=== PATIENT | female | born 1980 | race Two or more races ===

== ENCOUNTER 2020-05-20 14:00 | Emergency (ER) | payer BC ==
[2020-05-20 14:06] VITALS: BP 100/62; PULSE 71; TEMP 98.8; BMI 27.8
--- OUTSIDE RECORDS SUMMARY | 2020-05-20 14:35 | XMS ---
:1980 Author Organization [facility] Care Team Providers Name Role Phone CRIS Unavailable Unavailable Re-disclosure Warning The records that you are about to access may contain information from federally- assisted alcohol or drug abuse programs. If such information is present, then the following federally mandated warning applies: This information has been disclosed to you from records protected by federal confidentiality rules (42 CFR part 2). The federal rules prohibit you from making any further disclosure of this information unless further disclosure is expressly permitted by the written consent of the person to whom it pertains or as otherwise permitted by 42 CFR part 2. A general authorization for the release of medical or other information is NOT sufficient for this purpose. The Federal rules restrict any use of the information to criminally investigate or prosecute any alcohol or drug abuse patient.The records that you are about to access may contain highly sensitive health information, the redisclosure of which is protected by Article 27-F of the [place] [facility] law. If you continue you may haveaccess to information: Regarding HIV / AIDS; Provided by facilities licensed or operated by the [facility] Office of Mental Health; or Provided by the [facility] Office for People With Developmental Disabilities. If such information is present, then the following [facility] mandated warning applies: This information has been disclosed to you from confidential records which are protected by state law. State law prohibits you from making any further disclosure of this information without the specific written consent of the person to whom it pertains, or as otherwise permitted by law. Any unauthorized further disclosure in violation of state law may result in a fine or detention sentence or both. A general authorization for the release of medical or other information is NOT sufficient authorization for further disclosure. Encounters Encounter Providers Location Date Indications Data Source(s ) Outpatient Attender: 11/21/2019 Z03.818 [facility] joyce CRISAdmitter: 10:21:00 AM Health Care GARRICKReferrer: [employer] CRIS Z03.818 Insurance Providers Payer name Policy type / Policy ID Covered Covered green party's Policy Plan Coverage type green party ID relationship to [employer] Information jacobs [employer] OUT OF [id number] [place] [address] 63 Problems, Conditions, and Diagnoses Code Display Name Description Problem Type Effective Data Sour ce(s) Dates Z03.818 Encounter for ENCNTR FOR OBS Diagnosis 11/21/2019 [place] [facility] observation for FOR SUSP EXPSR TO 10:21:00 AM [employer] software suspected OTH BIOLG AGENTS [employer] poration exposure to other RULED OUT biological agents ruled out Results ID Date Data Source [id number] 11/21/2019 12:00:00 AM EDT [facility] Name Value Range Interpretation Code Description Data Anika rce(s) Supporting Document(s ) 2019-nCoV [facility] RNA XXX MOR+probe- Imp This lab was ordered by [facility] and reported by [employer] Procedure
[2020-05-20] MEDS ORDERED: IBUPROFEN 400 MG TABLET (FP) PO ONE ×2 (14:42→14:43)
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
== END 2020-05-20 14:49 | disposition home or self-care (01) ==
LOC: JERFT 14:00
DX: S93.402A Sprain of unspecified ligament of left ankle, initial encounter (principal)
CPT/HCPCS: 73610-TC-LT-FY; 73630-TC-LT; 99283-25

== ENCOUNTER 2023-07-21 17:30 | Emergency (ER) | payer BC ==
[2023-07-21 18:20] VITALS: BP 117/75; PULSE 73; RESP 18; TEMP 98.2; BMI 23.6
[2023-07-21 21:10] LABS: EOS % 1.6 % (0-4.5); HEMATOCRIT 39.1 % (32.4-45.2); HEMOGLOBIN 12.8 GM/dL (10.7-15.3); LYMPH % 36.8 % (8-40); MCH 25.2 pg (25.7-33.7); MCHC 32.8 g/dl (32.0-36.0); MEAN CELL VOLUME 76.8 fl (80-96); MEAN PLT VOLUME 7.6 fl (7.5-11.1); MONO % 9.5 % (3.8-10.2); NEUT % 51.1 % (42.8-82.8); PLATELET COUNT 296 10^3/uL (134-434); RBC 5.09 M/mm3 (3.60-5.2); RDW 14.1 % (11.6-15.6); WHITE BLOOD COUNT 8.1 K/mm3 (4.0-10.0)
[2023-07-21 21:17] LABS: INR 1.04 (0.83-1.09); PROTHROMBIN TIME (PATIENT) 12.1 SEC (9.7-13.0)
[2023-07-21 21:19] LABS: ACTIVATED PTT 33.2 SECONDS (25.2-36.5)
[2023-07-21 21:35] LABS: POTASSIUM 4.1 mmol/L (3.5-5.1)
[2023-07-21 21:38] LABS: ALBUMIN 3.7 g/dl (3.4-5.0); BLOOD UREA NITROGEN 13.1 mg/dL (7-18); CALCIUM 9.1 mg/dL (8.5-10.1)
[2023-07-21 21:41] LABS: CREATININE 0.7 mg/dL (0.55-1.3)
[2023-07-21 21:43] LABS: BILIRUBIN,TOTAL 0.5 mg/dL (0.2-1); TOT PROT 7.1 g/dl (6.4-8.2)
[2023-07-21 21:45] LABS: N-TERMINAL BNP 87.5 pg/ml (5-125)
== END 2023-07-21 22:26 | disposition home or self-care (01) ==
LOC: JER 17:30
DX: R07.9 Chest pain, unspecified (principal); R06.00 Dyspnea, unspecified; R00.2 Palpitations
CPT/HCPCS: 36415; 71046-TC-FY; 80053; 83880; 84484; 85025; 85610; 85730; 93005; 93010; 99285-25

== ENCOUNTER 2023-08-06 23:04 | Observation (INO) | payer BC ==
[2023-08-06 23:11] VITALS: BMI 23.9
[2023-08-07 00:56] LABS: BASO % 2.2 % (0-2.0); EOS % 0.8 % (0-4.5); HEMATOCRIT 39.8 % (32.4-45.2); LYMPH % 32.2 % (8-40); MCH 25.2 pg (25.7-33.7); MCHC 32.8 g/dl (32.0-36.0); MEAN CELL VOLUME 76.9 fl (80-96); MEAN PLT VOLUME 7.9 fl (7.5-11.1); MONO % 7.8 % (3.8-10.2); PLATELET COUNT 308 10^3/uL (134-434); RBC 5.17 M/mm3 (3.60-5.2)
[2023-08-07 01:16] LABS: POTASSIUM 5.5 mmol/L (3.5-5.1)
[2023-08-07 01:18] LABS: ALBUMIN 3.6 g/dl (3.4-5.0); BLOOD UREA NITROGEN 13.2 mg/dL (7-18); CALCIUM 8.8 mg/dL (8.5-10.1)
[2023-08-07 01:21] LABS: CREATININE 0.6 mg/dL (0.55-1.3)
[2023-08-07 01:23] LABS: BILIRUBIN,TOTAL 0.4 mg/dL (0.2-1)
[2023-08-07] MEDS ORDERED: SODIUM CHLORIDE 1,000 ML IV STA (05:28)
[2023-08-07] MEDS ORDERED: SODIUM CHLORIDE 1,000 ML IV SCH (05:30)
[2023-08-07] MEDS ORDERED: HYDROCORTISONE SOD SUCCINATE 100 MG/2 ML VIAL IVPUSH ONE (05:30)
[2023-08-07] MEDS ORDERED: HYDROCORTISONE SOD SUCCINATE 100 MG/2 ML VIAL ONE (05:56)
[2023-08-07 06:02] LABS: POTASSIUM 4.2 mmol/L (3.5-5.1)
[2023-08-07 06:04] LABS: CALCIUM 8.6 mg/dL (8.5-10.1)
[2023-08-07 06:08] LABS: CREATININE 0.6 mg/dL (0.55-1.3)
[2023-08-07] MEDS ORDERED: LEVOTHYROXINE NA 88 MCG TABLET (FP) PO SCH (07:00)
[2023-08-07] MEDS ORDERED: HYDROCORTISONE 10 MG TABLET PO SCH (07:00)
[2023-08-07] MEDS ORDERED: ASPIRIN 81 MG CHEWABLE TABLETS ONE (09:02)
[2023-08-07] MEDS ORDERED: LEVOTHYROXINE NA 88 MCG TABLET (FP) ONE (09:02)
[2023-08-07] MEDS ORDERED: DESMOPRESSIN ACETATE PO SCH (10:00)
[2023-08-07] MEDS ORDERED: ASPIRIN 81 MG CHEWABLE TABLETS PO SCH (10:00)
[2023-08-07 16:08] VITALS: BP 107/65; PULSE 67; RESP 16; TEMP 98.1
[2023-08-07] MEDS ORDERED: ATORVASTATIN CA 10 MG TABLET (FP) PO SCH (22:00)
[2023-08-08] MEDS ORDERED: HYDROCORTISONE 10 MG TABLET PO SCH (07:00)
[2023-08-08] MEDS ORDERED: ASPIRIN COATED 81 MG TABLET.EC PO SCH (10:00)
== END 2023-08-07 16:08 | disposition home or self-care (01) ==
LOC: JER 23:04 → UNDOADMOB 08-07 03:13 → JERBED 08-07 03:13 → INTOOBSV 08-07 05:49 → OBSVTOIN 08-07 05:49 → JERBED 08-07 07:19
PROVIDERS: ADMIT Internal Medicine; ATTEND Internal Medicine
PROC: 3E033GC Introduction of Other Therapeutic Substance into Peripheral Vein, Percutaneous Approach (ICD-10-PCS; principal; 2023-08-07)
PROC: 3E0337Z Introduction of Electrolytic and Water Balance Substance into Peripheral Vein, Percutaneous Approach (ICD-10-PCS; 2023-08-07)
DX: R07.89 Other chest pain (principal); R73.03 Prediabetes; E03.9 Hypothyroidism, unspecified; Z98.890 Other specified postprocedural states; E23.2 Diabetes insipidus; D49.9 Neoplasm of unspecified behavior of unspecified site
CPT/HCPCS: 36415; 71046-TC-FY; 80048; 80053; 83036; 84439; 84481; 84484; 85025; 85379; 93005; 93010; 93306-TC; 99285-25; G0378